=== PATIENT | male | born 1990 | race Caucasian/White ===

== ENCOUNTER 2016-09-16 15:55 | Emergency (ER) | payer SELFPAY ==
[~2016-09-16] VITALS: Ht 185.4 cm; Wt 84.1 kg
[2016-09-16 16:18] VITALS: TEMP 98
[2016-09-16] MEDS ORDERED: NORCO 325 MG-51 TAB PO (19:06)
[2016-09-16 19:30] VITALS: BP 152/82; PULSE 92
== END 2016-09-16 19:34 | disposition home or self-care (01) ==
LOC: COL.ER 15:55
DX: S82.032A Displaced transverse fracture of left patella, initial encounter for closed fracture (principal); W00.2XXA Other fall from one level to another due to ice and snow, initial encounter
CPT/HCPCS: J1170; J2405; L1830

== ENCOUNTER 2016-09-18 11:32 | Day surgery (SDC) | payer SELFPAY ==
[2016-09-18] VITALS (8 sets, daily range): BP systolic 134–145; BP diastolic 66–95; PULSE 86–115; TEMP 98.4–99.4
[~2016-09-18] VITALS: Ht 185.4 cm; Wt 79.6 kg
[~2016-09-18 11:32] MED LIST: NORCO 325 MG-51 TAB PO
== END 2016-09-18 21:05 | disposition home or self-care (01) ==
LOC: SDCO 11:32 → JCC 17:03 → SDCO 21:05
DX: S82.042A Displaced comminuted fracture of left patella, initial encounter for closed fracture (principal); W00.0XXA Fall on same level due to ice and snow, initial encounter; F17.200 Nicotine dependence, unspecified, uncomplicated
CPT/HCPCS: OP; C1713; J0690; J1100; J1885; J2250; J2405; J2704; J3010; J7120; L1832